=== PATIENT | male | born 1995 | race Asian ===

== ENCOUNTER 2022-02-12 13:03 | Emergency (ER) | payer BC ==
[2022-02-12] MEDS ORDERED: LIDOCAINE 1% W/EPI 1:100,000 MDV 50 ML VIAL ONE (14:34)
[2022-02-12] MEDS ORDERED: TETANUS & DIPHTHERIA TOX,ADULT 0.5 ML VIAL ONE (14:45)
--- NOTE | 2022-02-12 15:27 | EDPHYS ---
Physician Documentation [facility] Name: Darrel Crocoran Age: 26 yrs Sex: Male : 1995 Arrival Date: 02/12/2022 Time: 13:06 Bed 15 Private MD: ED Physician Freeman Weaver HPI: 02/12 13:40 This 26 yrs old Male presents to ER via Unassigned with complaints of Laceration cp To Hand. 13:40 The patient has a laceration occurred at home, while working on car. The laceration(s) cp is(are) located on the dorsum of right hand. Onset: The symptoms/episode began/occurred 1 hour(s) ago. 13:40 Associated signs and symptoms: The patient has no apparent associated signs or symptoms.cp 13:40 Patient reports hand slipped while working on car causing back of right hand to strike cp sharp piece of metal. Historical: - Allergies: 13:44 No Known Allergies; vg1 - Home Meds: 13:44 None [Active]; vg1 - PMHx: 13:44 Asthma; vg1 - PSHx: 13:44 None; vg1 - Immunization history:: Client reports having NOT received the Covid vaccine. - Social history:: Smoking status: Patient denies any tobacco usage or history of. ROS: 13:45 Skin: Positive for laceration(s), of the dorsal side of right hand. cp 13:45 Constitutional: Negative for body aches, chills, fever, poor PO intake. cp 13:45 MS/extremity: Negative for decreased range of motion, paresthesias. 13:45 Neuro: Negative for numbness, tingling, weakness. cp 13:45 All other systems are negative. Exam: 13:50 Constitutional: The patient appears in no acute distress, alert, awake, non-toxic, well cp developed, well nourished. 13:50 Musculoskeletal/extremity: Extremities: noted in the dorsal side proximal to right cp fourth metacarpal head: laceration, tenderness, There is no evidence of decreased ROM, ROM: full active range of motion, in the right hand, Perfusion: the extremity is normally perfused throughout, Sensation intact. Tendon exam: specific tendon testing normal through active and passive range of motion Vital Signs: 13:38 BP 144 / 85; Pulse 74; Resp 16; Pulse Ox 98% on R/A; Weight 77.11 kg; Height 6 ft. 3 vg1 in. (190.50 cm); Pain 0/10; 16:00 BP 131 / 80; Pulse 69; Resp 16; Pulse Ox 100% ; Pain 2/10; kb3 13:38 Body Mass Index 21.25 (77.11 kg, 190.50 cm) vg1 Laceration: 15:25 Wound Repair of 3cm ( 1.2in ) subcutaneous laceration to dorsal side of right hand. cp Irregularly shaped.. Distal neuro/vascular/tendon intact. Anesthesia: Wound infiltrated with 4 mls of 1% lidocaine w/ Epi. Wound prep: Moderate cleansing by me, Wound irrigation by me. Skin closed with 3 4-0 Prolene using interrupted sutures and sterile technique. Dressed with Bacitracin, 4x4's. Patient tolerated well. MDM: 13:47 Patient medically screened. cp 15:26 Data reviewed: vital signs, nurses notes. cp 15:26 Counseling: I had a detailed discussion with the patient and/or guardian regarding: the cp historical points, exam findings, and any diagnostic results supporting the discharge/admit diagnosis, to return to the emergency department if symptoms worsen or persist or if there are any questions or concerns that arise at home. Response to treatment: the patient's symptoms have markedly improved after treatment, and as a result, I will discharge patient. 02/12 13:40 Order name: Dressing - Wound; Complete Time: 16:17 cp 02/12 13:40 Order name: Gloves, Sterile; Complete Time: 14:27 cp 02/12 13:40 Order name: Setup Suture Tray; Complete Time: 14:27 cp 02/12 13:49 Order name: Wound Care: please clean and irrigate wound; Complete Time: 14:46 cp Administered Medications: 14:46 Drug: Tetanus-Diphtheria Toxoid Adult 0.5 ml {[employer]: [employer]. Exp: kb3 11/07/2023. Lot #: [id number]. } Route: IM; Site: right deltoid; 16:18 Follow up: Response: No adverse reaction kb3 16:18 Drug: Lidocaine-Epinephrine -1%: (1:100,000) 5 ml Volume: 20 ml; Route: Infiltration; kb3 16:18 Follow up: Response: No adverse reaction kb3 Disposition: 16:44 Attestation: The patient's history, exam findings, diagnostics, and a summary of any jr interventions or procedures was reviewed in detail with Dean GONZALEZ. Disposition Summary: 02/12/22 15:26 Discharge Ordered Location: Home cp Problem: new cp Symptoms: have improved cp Condition: Stable cp Diagnosis - Laceration without foreign body of right hand, initial encounter cp Followup: cp - With: Private Physician - When: 10 - 14 days - Reason: Staple/Suture removal Discharge Instructions: - Discharge Summary Sheet cp - Laceration Care, Adult cp - Sutured Wound Care cp Forms: - Medication Reconciliation Form cp - Thank You Letter cp - Antibiotic Education cp - Prescription Opioid Use cp Prescriptions: - Ibuprofen 800 mg Oral Tablet - take 1 tablet by ORAL route every 8 hours As needed take with food; 30 tablet; cp Refills: 0, Product Selection Permitted Signatures: Dean Bourne PA PA cp Garcia, Victoria RN RN vg1 Freeman Weaver MD MD [id number] Jaylene Villalba RN RN kb3
--- NOTE | 2022-02-12 15:27 | ER ---
Nurse's Notes [facility] Name: Darrel Corcoran Age: 26 yrs Sex: Male : 1995 Arrival Date: 02/12/2022 Time: 13:06 Bed 15 Private MD: Diagnosis: Laceration without foreign body of right hand, initial encounter Presentation: 02/12 13:38 Chief complaint: Patient states: "I was working on my car and I cut it with the metal" vg1 Incident occurred about an hour ago. Coronavirus screen: Vaccine status: Client denies travel out of the [place] in the last 14 days. Ebola Screen: Patient denies exposure to infectious person. Patient denies travel to an Ebola-affected area in the 21 days before illness onset. Complicating Factors: There are no complicating factors for this patient. Initial Sepsis Screen: Does the patient meet any 2 criteria? No. Patient's initial sepsis screen is negative. Does the patient have a suspected source of infection? No. Patient's initial sepsis screen is negative. Risk Assessment: Do you want to hurt yourself or someone else? Patient reports no desire to harm self or others. Onset of symptoms was February 12, 2022. 13:38 Method Of Arrival: Ambulatory vg1 13:38 Acuity: JOVANA 4 vg1 Triage Assessment: 13:44 General: Appears in no apparent distress. comfortable, Behavior is calm, cooperative. vg1 Pain: Denies pain. Injury Description: Laceration sustained to right hand. Historical: - Allergies: 13:44 No Known Allergies; vg1 - Home Meds: 13:44 None [Active]; vg1 - PMHx: 13:44 Asthma; vg1 - PSHx: 13:44 None; vg1 - Immunization history:: Client reports having NOT received the Covid vaccine. - Social history:: Smoking status: Patient denies any tobacco usage or history of. Screenin:00 Abuse screen: Denies threats or abuse. Denies injuries from another. Nutritional kb3 screening: No deficits noted. Tuberculosis screening: No symptoms or risk factors identified. Fall Risk None identified. Assessment: 14:00 Musculoskeletal: No deficits noted. kb3 16:11 General: Appears in no apparent distress. comfortable, Behavior is calm, cooperative. kb3 Pain: Complains of pain in right hand Pain does not radiate. Pain currently is 5 out of 10 on a pain scale. Quality of pain is described as tender, stinging, Pain began 1 hour ago. Is continuous. Derm:. Injury Description: Laceration sustained to right hand is clean, 0.5 to 2.5 cm long, not bleeding. Vital Signs: 13:38 BP 144 / 85; Pulse 74; Resp 16; Pulse Ox 98% on R/A; Weight 77.11 kg; Height 6 ft. 3 vg1 in. (190.50 cm); Pain 0/10; 16:00 BP 131 / 80; Pulse 69; Resp 16; Pulse Ox 100% ; Pain 2/10; kb3 13:38 Body Mass Index 21.25 (77.11 kg, 190.50 cm) vg1 ED Course: 13:06 Patient arrived in ED. rg4 13:16 Dean Bourne PA is PHCP. cp 13:16 Freeman Weaver MD is Attending Physician. cp 13:44 Triage completed. vg1 13:44 Arm band placed on. vg1 13:47 Jaylene Villalba, RN is Primary Nurse. kb3 14:00 Patient has correct armband on for positive identification. Bed in low position. kb3 14:00 Assist provider with laceration repair on right hand that was 2.5 cm. or less using kb3 sutures. Set up tray. Performed by Dean GONZALEZ Dressed with 4X4s, Kerlix, Amalia, Xeroform, Patient tolerated well. 14:00 Patient did not have IV access during this emergency room visit. kb3 Administered Medications: 14:46 Drug: Tetanus-Diphtheria Toxoid Adult 0.5 ml {Pin Pusher: [employer]. Exp: kb3 11/07/2023. Lot #: [id number]. } Route: IM; Site: right deltoid; 16:18 Follow up: Response: No adverse reaction kb3 16:18 Drug: Lidocaine-Epinephrine -1%: (1:100,000) 5 ml Volume: 20 ml; Route: Infiltration; kb3 16:18 Follow up: Response: No adverse reaction kb3 Medication: 16:00 VIS not applicable for this client. kb3 Outcome: 15:26 Discharge ordered by . cp 16:16 Discharged to home ambulatory, with friend. kb3 16:16 Condition: good 16:16 Discharge instructions given to patient, Instructed on discharge instructions, follow up and referral plans. medication usage, wound care, Demonstrated understanding of instructions, medications, wound care, Prescriptions given X 1. 16:19 Patient left the ED. kb3 Signatures: Dean Bourne PA PA cp Garcia, Rubi rg4 Mayte Bran, RN RN vg1 Jaylene Villalba, RN RN kb3
[2022-02-12 18:10] VITALS: BP 131/80; O2SAT 100
== END 2022-02-12 16:19 | disposition home or self-care (01) ==
LOC: ER 13:03
PROC: 0JQJ0ZZ Repair Right Hand Subcutaneous Tissue and Fascia, Open Approach (ICD-10-PCS; principal; 2022-02-12)
DX: S61.411A Laceration without foreign body of right hand, initial encounter (principal); Z23 Encounter for immunization
CPT/HCPCS: 90471; 90714; 99283